=== PATIENT | female | born 2000 | race Two or more races ===

== ENCOUNTER 2022-12-19 22:24 | Emergency (ER) | payer SELFPAY ==
[~2022-12-19] VITALS: Ht 160 cm; Wt 60.0 kg
[2022-12-19 22:32] VITALS: BP 96/53; PULSE 88; RESP 20; TEMP 97.6; O2SAT 96
[2022-12-19] MEDS ORDERED: SODIUM CHLORIDE 0.9% 1,000 ML IV ONE (22:45)
== END 2022-12-20 04:49 | disposition left against medical advice (07) ==
LOC: ER 22:48
DX: F10.129 Alcohol abuse with intoxication, unspecified (principal); K29.00 Acute gastritis without bleeding; Y90.9 Presence of alcohol in blood, level not specified
CPT/HCPCS: 80320; 36415; 96360; 99283; 82962; J7030; G0480